=== PATIENT | female | born 1985 | race Caucasian/White ===

== ENCOUNTER 2024-12-28 10:37 | Outpatient (CLI) | payer MEDICAID ==
--- NOTE | 2024-12-28 14:31 | RADIOLOGY REPORT ---
ULTRASOUND SOFT TISSUE HEAD AND NECK CLINICAL INDICATION: NONTOXIC SINGLE THYROID NODULE TECHNIQUE: Multiple real time sonographic images of the thyroid were obtained. FINDINGS: The right thyroid gland measures 4 x 2 x 1 cm. Left thyorid removed. The isthmus measures 0.2 cm. IMPRESSION: 1. Multiple right thyroid nodules up to 0.3 cm, which represents a TI-RADS 3 nodules. Follow-up in 1 year. [employer] TI-RADS Categories and Recommendations (2017): TR1: 0 points, Benign, No FNA TR2: 2 points, Not suspicious, No FNA TR3: 3 points, Mildly suspicious, FNA if > or = 2.5 cm, Follow if > or = 1.5 cm TR4: 4-6 points, Moderately Suspicious, FNA if > or = 1.5 cm, Follow if > or = 1.0 cm TR5: 7+ points, Highly Suspicious, FNA if > or = 1.0 cm, Follow if > or = 0.5 cm Follow-up ultrasound guidelines: TR5: yearly for 5 years, if no growth or change in TI-RADS level TR4: at 1, 2, 3 and 5 years, if no growth or change in TI-RADS level TR3: at 1, 3 and 5 years, if no growth or change in TI-RADS level If increased but below threshold for FNA, repeat in one year. Source: ACR Thyroid Imaging, Reporting and Data System (TI-RADS): White Paper of the ACR TI-RADS Committee. Argelia et al., J Am Coy Radiol 2017;14:587-595.
== END 2024-12-28 23:59 | disposition home or self-care (01) ==
LOC: RAD 10:37
PROVIDERS: ATTEND Family Medicine
DX: E04.2 Nontoxic multinodular goiter (principal)
CPT/HCPCS: 76536